=== PATIENT | female | born 1985 | race Two or more races ===

== ENCOUNTER → 2017-04-23 | Outpatient (CLI) | payer BC ==
[2015-12-14 08:32] VITALS: BP 109/65
--- NOTE | 2017-04-23 08:53 | KCIC ---
Indication: Abdominal pain radiating to the back. The pancreas, aorta and IVC are unremarkable. The liver is normal in size. No focal liver mass is detected. There are multiple stones within the gallbladder. No wall thickening or pericholecystic fluid is identified. No biliary ductal dilatation is identified. The spleen is normal in size. The right and left kidneys are unremarkable. There is no ascites. IMPRESSION: 1. Cholelithiasis without evidence of acute cholecystitis. Electronically signed by: Ryan Salazar MD (04/23/2017 8:49 AM) [id number]
== END | disposition home or self-care (01) ==
LOC: KCIC US 08:02
PROVIDERS: ATTEND Obstetrics & Gynecology
DX: K80.20 Calculus of gallbladder without cholecystitis without obstruction (principal)
CPT/HCPCS: 76700

== ENCOUNTER → 2017-05-25 | Day surgery (SDC) | payer BC ==
[~2017-05-25] VITALS: Ht 152.4 cm; Wt 50.8 kg
[~2017-05-25] MED LIST: BUPIVAC MPF-EPI 0.5%-1:200000 30 ML VIAL. ONE; DEXAMETHASONE SOD PHOS 20 MG/5 ML VIAL. ONE; FAMOTIDINE 20 MG/2 ML VIAL ONE; GLUCAGON,HUMAN RECOMBINANT 1 MG/ML VIAL. ONE; GLYCOPYRROLATE 1 MG/5 ML VIAL. ONE; HYDR-971 PO; HYDROcodone/APAP 5/325MG 1 TAB TABLET PO ONE; HYDROmorphone 2 MG/ML VIAL IV PRN; IOHEXOL 300 MG/ML 50 ML VIAL. ONE; KETOROLAC 60 MG/2 ML INJ FOR OR. ONE; LIDOCAINE 1% 1 ML SYRINGE. ID PRN; MIDAZOLAM HCL/PF 2 MG/2 ML VIAL. ONE; MORPHINE SULFATE 2 MG/ML DISP.SYRIN. IV PRN; NEOSTIGMINE 10 MG/10 ML VIAL. ONE; ONDANSETRON PF 4 MG/2 ML VIAL. IV PRN; ONDANSETRON PF 4 MG/2 ML VIAL. ONE; PROCHLORPERAZINE 10 MG/2 ML VIAL. ONE; PROPOFOL 20 ML IV ONE; ROCURONIUM 100 MG/10 ML VIAL. ONE; SENN1TAB70 PO; SEVOFLURANE 31 TO 60 MINUTES. IH ONE; SURGICEL HEMOSTAT 4X8 EACH. ONE; ceFAZolin 2GM PREMIX 2 GM/50 ML BAG IV ONE; fentaNYL PF VIAL 100 MCG/2 ML VIAL IV PRN; fentaNYL PF VIAL 100 MCG/2 ML VIAL ONE
[2017-05-25 07:03] LABS: BASO # 0.1 x10^3/uL (0.0-0.2); BASO % 1 % (0-3); EOS % 4 % (0-3); HEMATOCRIT 37.4 % (36.0-47.0); HEMOGLOBIN 12.3 g/dL (12.0-15.5); LYMPH # 2.8 x10^3/uL (1.0-4.8); LYMPH % 40 % (24-48); MEAN CORPUSCULAR HEMOGLOBIN 29 pg (25-35); MEAN CORPUSCULAR HGB CONC 33 g/dL (31-37); MEAN CORPUSCULAR VOLUME 87 fL (79-100); MONO % 6 % (0-9); NEUT % 49 % (31-73); PLATELET COUNT 231 x10^3/uL (140-400); RED BLOOD COUNT 4.28 x10^6/uL (3.50-5.40); RED CELL DISTRIBUTION WIDTH 13.4 % (11.5-14.5)
[2017-05-25] MEDS: IV RINGERS,LACTATED 1000ML 1,000 ML IV SCH ×2 (07:07→10:29)
[2017-05-25 07:25] LABS: CALCIUM 8.4 mg/dL (8.5-10.1); CREATININE 0.6 mg/dL (0.6-1.0); GFR 115.1; POTASSIUM 3.8 mmol/L (3.5-5.1)
[2017-05-25 07:29] LABS: ALBUMIN 3.6 g/dL (3.4-5.0); TOTAL BILIRUBIN 0.4 mg/dL (0.2-1.0)
--- NOTE | 2017-05-25 08:41 | RAD ---
Intraoperative cholangiogram, 05/25/2017: History: Cholecystectomy 2 spot films from surgery are presented for review. Contrast has been injected into the cystic duct remnant. 31 seconds of fluoroscopy time was utilized. There is good flow of contrast into the duodenum at the ampulla. No persistent filling defect is seen in the common duct to suggest a retained calculus. There was minimal reflux of contrast into the intrahepatic ducts. Minimal contrast extravasation in the gallbladder fossa region is probably on a technical basis related to the catheter insertion site in the cystic duct. A biliary leak cannot be entirely excluded.
--- NOTE | 2017-05-25 09:12 | DISCH ---
DISCHARGE INSTRUCTIONS Condition on Discharge Condition on Discharge: Stable Activity After Discharge Activity Instructions for Disc: Activity as tolerated, Avoid exertion Lifting Instructions after Dis: No heavy lifting Driving Instructions after Dis: Do not drive (3-4 DAYS) Diet after Discharge Diet after Discharge: Regular Wound Incision Care Wound/Incision Care: Ice to area for comfort Follow-Up Follow up with: Nate 05/29 CECI COBOS MD May 25, 2017 09:12
[2017-05-25] MEDS: PROCHLORPERAZINE 10 MG/2 ML VIAL. IV PRN ×2 (09:15→09:40)
--- NOTE | 2017-05-25 09:15 | PDOC ---
BRIEF OPERATIVE NOTE Date: May 25, 2017 Pre-Op Diagnosis symptomatic cholelithiasis Post-Op Diagnosis same Procedure Performed l/s cholecystectomy with cholangiograms Surgeon Nate Anesthesia Type: General Blood Loss 15cc IV Fluid 1000cc Specimens Obtained GB Findings supple GB with multiple stones, no evidence of CBD stone Complications none OPerative Note Wk # [id number] CECI COBOS MD May 25, 2017 09:15
[2017-05-25] MEDS: fentaNYL PF VIAL 100 MCG/2 ML VIAL IV PRN ×3 (09:16→09:42)
--- NOTE | 2017-05-25 10:42 | OP ---
DATE OF SURGERY: 05/25/2017 PREOPERATIVE DIAGNOSIS: Symptomatic cholelithiasis. POSTOPERATIVE DIAGNOSIS: Symptomatic cholelithiasis. PROCEDURE: Laparoscopic cholecystectomy. SURGEON: Ceci Cobos MD ANESTHESIA: General endotracheal. ESTIMATED BLOOD LOSS: 15 mL. IV FLUIDS: 1 liter. INDICATIONS: The patient is a 32-year-old with postprandial right upper quadrant pain and an ultrasound showing stones. She is brought for cholecystectomy. OPERATIVE FINDINGS: The liver was smooth and sharp. The gallbladder was supple and contained multiple stones. Visual inspection of the remainder of the abdomen failed to reveal obvious abnormalities. DESCRIPTION OF PROCEDURE: The patient brought to the operating suite, given a general endotracheal anesthetic and the abdomen prepped and draped in usual sterile fashion. A supraumbilical incision was infiltrated with local anesthetic, sharply incised and a 5 mm Visiport used to gain access into the abdominal cavity, taking care to avoid injury to abdominal contents. Pneumoperitoneum was established. Camera inserted and inspection carried out with results as noted above. With the table in reverse Trendelenburg rolled to left, the epigastric and midclavicular ports were placed under direct vision. The lateral port location was used for an alligator grasper. The gallbladder was retracted superolaterally and the cystic duct and cystic artery were identified. The duct was clipped on the gallbladder side. Cholangiograms were made. In ____ usual films showed a minimal filling of the proximal radicals. The table was placed in deep Trendelenburg, but despite this, I was unable to demonstrate the proximal radicals. In light of this, the catheter was removed. The cystic duct was clipped and divided, taking care to avoid injury or compromise of the common duct. The cystic artery was clipped and divided and the gallbladder freed from the bed with cautery dissection and placed in an EndoCatch bag. Good hemostasis was present and there was no evidence of a bile leak present. Table returned to level. Gallbladder delivered through the epigastric incision. Epigastric incision closed with interrupted 0 Vicryl suture. Intra-abdominal pressure decreased to 6 cm of water. No bleeding from the epigastric closure or from the midclavicular port site after its removal. Abdomen decompressed, camera slowly removed, no bleeding seen. Skin incisions closed with subcuticular 4-0 Monocryl. Steri-Strips and sterile dressings applied. The patient awakened from her anesthetic and taken to the recovery room in satisfactory condition. CECI COBOS MD DR: STEVENSON/lavinia JOB#: [id number] / [id number]
[2017-05-25 11:45] VITALS: BP 106/78
--- NOTE | 2017-05-26 13:46 | PATHOLOGY ---
PATHOLOGY REPORT * * * * * * * * FINAL DIAGNOSIS: Gallbladder, laparoscopic cholecystectomy: - Cholelithiasis. - Chronic cholecystitis. COMMENT: There is no evidence of malignancy. (JPM:pit; 05/26/2017) REPORT ELECTRONICALLY SIGNED BY: Russell Landa M.D. DATE/TIME: 05/26/2017 13:45 * * * * * * * * GROSS PATHOLOGY: Received in formalin labeled "Aron Girard, gallbladder sac with contents," is a 7.7 x 2.9 x 1.6 cm, intact gallbladder with dark green, bile stained serosal surfaces. Opening the gallbladder reveals frost brown, velvety mucosa and an average wall thickness of 0.3 cm. Calculi are present and no masses are noted grossly. Pullboat Engineer sections from the body and fundus are submitted along with the proximal margin in cassette A1. (JPM; 05/25/17) INITIAL CPT CODE(S): A; 54447 Professional services performed [email or web address] [address] Technical services performed by [facility] at [address] [place] [address]. SPECIMEN(S) RECEIVED: A.Gallbladder sac with contents CLINICAL HISTORY: Symptomatic cholelithiasis PATIENT: ARON GIRARD /AGE: 805/20/1985 (Age: 32) PATIENT #: [id number] ALT CASE #: SPECIMEN COLLECTION DATE: 05/25/2017 SPECIMEN RECEIVED DATE: 05/25/2017 [facility] - [address] [place] [address] - PHONE: [phone] * * * END OF REPORT * * *
== END | disposition home or self-care (01) ==
LOC: SURG 06:13
PROVIDERS: ATTEND Surgery
DX: K80.10 Calculus of gallbladder with chronic cholecystitis without obstruction (principal); Z90.710 Acquired absence of both cervix and uterus
CPT/HCPCS: 36415; 47563; 74300; 80048; 82040; 82247; 85025; 88304; C1769; J0690; J0780; J1100; J1885; J2250; J2405; J2704; J2710; J3010; J3490; J7030; Q9967; S0028; J1610

== ENCOUNTER → 2021-02-04 | Outpatient (CLI) | payer BC ==
[2017-05-25 11:45] VITALS: BP 106/78
[~2021-02-04] MED LIST changes: -BUPIVAC MPF-EPI 0.5%-1:200000 30 ML VIAL. ONE; -DEXAMETHASONE SOD PHOS 20 MG/5 ML VIAL. ONE; -FAMOTIDINE 20 MG/2 ML VIAL ONE; -GLUCAGON,HUMAN RECOMBINANT 1 MG/ML VIAL. ONE; -GLYCOPYRROLATE 1 MG/5 ML VIAL. ONE; +HYDR-3164 PO; -HYDR-971 PO; -HYDROcodone/APAP 5/325MG 1 TAB TABLET PO ONE; -HYDROmorphone 2 MG/ML VIAL IV PRN; -IOHEXOL 300 MG/ML 50 ML VIAL. ONE; -KETOROLAC 60 MG/2 ML INJ FOR OR. ONE; -LIDOCAINE 1% 1 ML SYRINGE. ID PRN; -MIDAZOLAM HCL/PF 2 MG/2 ML VIAL. ONE; -MORPHINE SULFATE 2 MG/ML DISP.SYRIN. IV PRN; -NEOSTIGMINE 10 MG/10 ML VIAL. ONE; -ONDANSETRON PF 4 MG/2 ML VIAL. IV PRN; -ONDANSETRON PF 4 MG/2 ML VIAL. ONE; -PROCHLORPERAZINE 10 MG/2 ML VIAL. ONE; -PROPOFOL 20 ML IV ONE; -ROCURONIUM 100 MG/10 ML VIAL. ONE; -SEVOFLURANE 31 TO 60 MINUTES. IH ONE; -SURGICEL HEMOSTAT 4X8 EACH. ONE; -ceFAZolin 2GM PREMIX 2 GM/50 ML BAG IV ONE; -fentaNYL PF VIAL 100 MCG/2 ML VIAL IV PRN; -fentaNYL PF VIAL 100 MCG/2 ML VIAL ONE
--- NOTE | 2021-02-04 14:29 | RAD ---
Exam Date: 02/04/2021 1:55 PM US RENAL UNILAT Indication: Reason: RLQ PAIN RADIATING TO THE BACK / Spl. Instructions: / History: Impression: Sonographic images were obtained of the right kidney, bladder, and right lower quadrant. The right ki dney is normal in appearance and measures 12.9 cm in length. There is no hydronephrosis, shadowing re nal calculi, or solid renal mass. Urinary bladder is normal in appearance. Images of the right lower quadrant demonstrate no focal abnormality. Patient is reportedly status post left nephrectomy, append ectomy, hysterectomy and bilateral oophorectomy. Electronically signed by: Rickie Borges MD (02/04/2021 2:27 PM) [id number]
== END ==
LOC: US 13:42
PROVIDERS: ATTEND Family Medicine
DX: R10.31 Right lower quadrant pain (principal); Z90.89 Acquired absence of other organs; Z90.5 Acquired absence of kidney; Z90.710 Acquired absence of both cervix and uterus
CPT/HCPCS: 76775